=== PATIENT | male | born 1965 | race Caucasian/White ===

== ENCOUNTER 2025-04-15 06:25 | Day surgery (SDC) | payer OTHER, SELFPAY | END 2025-04-15 09:38 | disposition home or self-care (01) | LOC: GI 06:25 | PROVIDERS: ATTENDING PHYSICIAN Internal Medicine Gastroenterology | DX: Z12.11 Encounter for screening for malignant neoplasm of colon (principal); K64.8 Other hemorrhoids; D12.2 Benign neoplasm of ascending colon; D12.8 Benign neoplasm of rectum; Z86.0101 Personal history of adenomatous and serrated colon polyps | CPT/HCPCS: 45385; 88305 ==